=== PATIENT | female | born 1980 | race Caucasian/White ===

== ENCOUNTER 2021-01-16 09:12 | Inpatient (IN) ==
[2021-01-16] MEDS: fentaNYL 100 MCG/2 ML VIAL IV STA ×2 (09:45→17:19)
[2021-01-16] MEDS: SODIUM CHLORIDE 0.9% 1,000 ML IV STA ×2 (09:45→17:19)
[2021-01-16] MEDS: ONDANSETRON 4 MG/2 ML VIAL IV STA ×2 (09:47→17:20)
[2021-01-16 12:18] LABS: Basophils % 0.3 % (0.0-0.8); Eosinophils % 0.1 % (0.00-10.9); Hematocrit 37.8 VOL% (35.7-47.0); Hemoglobin 12.7 GM/DL (12.0-16.0); Immature Granulocytes % 0.3 %; Immature Granulocytes Absolute 0.04 #; Lymphocytes # 1.2 10*3/uL (1.4-4.0); Lymphocytes % 9.6 % (21.3-54.2); Mean Corpuscular HGB Conc 33.6 GM/DL (32-36); Mean Corpuscular Volume 89.6 FL (87-102); Mean Platelet Volume 10.3 FL (9.6-12.0); Monocytes % 8.6 % (1.7-12.7); Neutrophils % 81.1 % (38.7-73.9); Platelet Count 186 T/CUMM (130-400); Red Blood Count 4.22 MC/CUMM (3.8-5.5); Red Cell Distribution Width 13.7 % (9.3-17.3); White Blood Count 12.7 T/CUMM (4-12)
[2021-01-16] MEDS ORDERED: ONDANSETRON 4 MG/2 ML VIAL IV PRN (12:22)
[2021-01-16] MEDS ORDERED: ALBUTEROL/IPRATROPIUM 3 ML NEB RESP TX PRN (12:22)
[2021-01-16] MEDS ORDERED: HYDROmorphone 2 MG/1 ML VIAL IV PRN ×2 (12:22)
[2021-01-16] MEDS ORDERED: ACETAMINOPHEN 325 MG TABLET PO PRN (12:22)
[2021-01-16] MEDS ORDERED: BISACODYL 5 MG TABLET PO PRN (12:22)
[2021-01-16 12:40] LABS: Albumin 3.5 G/DL (3.4-5.0); Bilirubin,Total 0.4 MG/DL (0.2-1.0); Calcium 8.3 MG/DL (8.5-10.1); Osmolality,Calculated 286.8 MOS/KG (273-304); Potassium 3.7 MMOL/L (3.5-5.1); Total Protein 6.4 G/DL (6.4-8.2)
[2021-01-16] MEDS: LACTATED RINGERS 1,000 ML IV SCH (16:00)
[2021-01-16] MEDS: KETOROLAC 30 MG/1 ML VIAL IV SCH ×3 (17:20→23:41)
[2021-01-16 18:55] LABS: Hematocrit 37.9 VOL% (35.7-47.0); Hemoglobin 12.3 GM/DL (12.0-16.0)
[2021-01-16 22:50] LABS: Bilirubin,Urine Negative (Negative); Blood, Urine Negative (Negative); Glucose,Urine (UA) Negative (Negative); Ketones,Urine 20 mg/dL (Negative); Mucus,Urine Occasional /LPF (Occasional); Nitrite,Urine Negative (Negative); Protein,Urine Negative; RBC,Urine 3 /HPF (0-4); Squamous Epithelial Cell,Urine Occasional /HPF (0-10); Urine Appearance CLEAR (Clear); Urine Color Yellow (Yellow); Urine Urobilinogen < 2.0 EU/DL (0.2-1.0)
[2021-01-17 00:40] LABS: Hematocrit 34.3 VOL% (35.7-47.0); Hemoglobin 11.2 GM/DL (12.0-16.0)
[2021-01-17] MEDS: LACTATED RINGERS 1,000 ML IV SCH ×2 (03:26→16:13)
[2021-01-17] MEDS: KETOROLAC 30 MG/1 ML VIAL IV SCH ×3 (05:42→17:54)
[2021-01-17 05:48] LABS: Basophils % 0.6 % (0.0-0.8); Eosinophils # 0.1 10*3/uL (0.0-0.87); Eosinophils % 1.5 % (0.00-10.9); Hematocrit 33.1 VOL% (35.7-47.0); Hemoglobin 10.6 GM/DL (12.0-16.0); Immature Granulocytes % 0.3 %; Immature Granulocytes Absolute 0.02 #; Lymphocytes # 2.1 10*3/uL (1.4-4.0); Lymphocytes % 32.4 % (21.3-54.2); Mean Corpuscular Volume 91.4 FL (87-102); Mean Platelet Volume 11.1 FL (9.6-12.0); Monocytes % 12.5 % (1.7-12.7); Neutrophils % 52.7 % (38.7-73.9); Platelet Count 167 T/CUMM (130-400); Red Blood Count 3.62 MC/CUMM (3.8-5.5); Red Cell Distribution Width 13.7 % (9.3-17.3); White Blood Count 6.5 T/CUMM (4-12)
[2021-01-17 06:14] LABS: Albumin 2.9 G/DL (3.4-5.0); Bilirubin,Total 0.7 MG/DL (0.2-1.0); Calcium 8.2 MG/DL (8.5-10.1); Osmolality,Calculated 287.7 MOS/KG (273-304); Potassium 3.2 MMOL/L (3.5-5.1); Total Protein 5.5 G/DL (6.4-8.2)
[2021-01-17 06:17] LABS: Hypochromasia Slight; Microcytosis 1+; Platelet Estimate Adequate
[2021-01-17 06:28] LABS: Hematocrit 32.4 VOL% (35.7-47.0); Hemoglobin 10.7 GM/DL (12.0-16.0)
[2021-01-17] MEDS: POTASSIUM CHLORIDE 20 MEQ TABLET PO PRN ×4 (08:41→16:28)
[2021-01-17] MEDS: PANTOPRAZOLE 40 MG TABLET PO SCH (08:41)
[2021-01-17 12:22] LABS: Hematocrit 32.7 VOL% (35.7-47.0); Hemoglobin 10.8 GM/DL (12.0-16.0)
[2021-01-17 19:02] LABS: Hematocrit 30.4 VOL% (35.7-47.0)
[2021-01-18] MEDS: LACTATED RINGERS 1,000 ML IV SCH ×3 (00:22→20:50)
[2021-01-18] MEDS: KETOROLAC 30 MG/1 ML VIAL IV SCH ×4 (00:24→17:45)
[2021-01-18 07:03] LABS: Basophils % 0.5 % (0.0-0.8); Eosinophils # 0.1 10*3/uL (0.0-0.87); Hematocrit 24.3 VOL% (35.7-47.0); Immature Granulocytes % 0.2 %; Immature Granulocytes Absolute 0.01 #; Lymphocytes # 1.5 10*3/uL (1.4-4.0); Lymphocytes % 36.7 % (21.3-54.2); Mean Corpuscular HGB Conc 32.9 GM/DL (32-36); Mean Corpuscular Volume 92.4 FL (87-102); Mean Platelet Volume 11.4 FL (9.6-12.0); Neutrophils % 51.6 % (38.7-73.9); Red Cell Distribution Width 13.8 % (9.3-17.3)
[2021-01-18 07:05] LABS: Platelet Count 125 T/CUMM (130-400); Red Blood Count 2.63 MC/CUMM (3.8-5.5); White Blood Count 4.1 T/CUMM (4-12)
[2021-01-18 07:09] LABS: Calcium 7.9 MG/DL (8.5-10.1); Osmolality,Calculated 278.1 MOS/KG (273-304); Potassium 3.9 MMOL/L (3.5-5.1)
[2021-01-18] MEDS: PANTOPRAZOLE 40 MG TABLET PO SCH (09:08)
[2021-01-18] MEDS ORDERED: MAGNESIUM SULF RIDER 2 GM/50 ML PREMIX IV ONE (11:00)
[2021-01-18 12:20] LABS: Basophils # 0.1 10*3/uL (0.0-0.2); Basophils % 0.7 % (0.0-0.8); Eosinophils # 0.1 10*3/uL (0.0-0.87); Eosinophils % 1.8 % (0.00-10.9); Hematocrit 32.2 VOL% (35.7-47.0); Immature Granulocytes % 0.1 %; Immature Granulocytes Absolute 0.01 #; Lymphocytes # 1.9 10*3/uL (1.4-4.0); Lymphocytes % 27.7 % (21.3-54.2); Mean Platelet Volume 10.5 FL (9.6-12.0); Monocytes % 8.8 % (1.7-12.7); Neutrophils % 60.9 % (38.7-73.9); Red Cell Distribution Width 13.5 % (9.3-17.3); White Blood Count 6.8 T/CUMM (4-12)
[2021-01-18 12:21] LABS: Hemoglobin 10.3 GM/DL (12.0-16.0); Platelet Count 170 T/CUMM (130-400)
[2021-01-18 13:10] LABS: Band Neutrophils 1 % (0-10); Eosinophils 3 % (0-10); Lymphocytes 28 % (20-55); Platelet Estimate Normal; Segmented Neutrophils 62 % (50-85); Total Cells Counted 100
[2021-01-18 13:11] LABS: Anisocytosis Slight; Macrocytosis Slight
[2021-01-19] MEDS: KETOROLAC 30 MG/1 ML VIAL IV SCH ×2 (00:21→06:16)
[2021-01-19] MEDS: LACTATED RINGERS 1,000 ML IV SCH (04:25)
[2021-01-19 06:45] LABS: Basophils % 0.6 % (0.0-0.8); Eosinophils # 0.2 10*3/uL (0.0-0.87); Eosinophils % 2.8 % (0.00-10.9); Hematocrit 29.6 VOL% (35.7-47.0); Immature Granulocytes % 0.3 %; Immature Granulocytes Absolute 0.02 #; Lymphocytes # 1.6 10*3/uL (1.4-4.0); Lymphocytes % 25.2 % (21.3-54.2); Mean Corpuscular HGB Conc 33.8 GM/DL (32-36); Mean Platelet Volume 11.3 FL (9.6-12.0); Monocytes % 9.1 % (1.7-12.7); Platelet Count 164 T/CUMM (130-400); Red Blood Count 3.29 MC/CUMM (3.8-5.5); Red Cell Distribution Width 13.5 % (9.3-17.3); White Blood Count 6.5 T/CUMM (4-12)
[2021-01-19 08:09] VITALS: BP 119/80
[2021-01-19] MEDS: PANTOPRAZOLE 40 MG TABLET PO SCH (09:42)
== END 2021-01-19 10:30 | disposition home or self-care (01) | DRG 816 ==
LOC: N.ED 09:12 → N.EDINP 12:22 → N.3E 17:17
PROVIDERS: ADMIT Surgery; ATTEND Surgery